=== PATIENT | female | born 1995 | race Caucasian/White ===

== ENCOUNTER 2018-11-11 11:15 | Observation (INO) | payer OTHER ==
[~2018-11-11] VITALS: Ht 157.5 cm; Wt 63.5 kg
--- NOTE | ~2018-11-11 | O ---
[facility] [place] [address] OPERATIVE REPORT Name: KEIRY HENDRICKS Room #: 364-P [facility] M.RMaddie#: [id number] Admission: 11/11/18 Attend Phys: Roque Mujica DDS Discharge: 11/12/18 Date of : [birth year] Report #: [id number] THIS REPORT FOR: //name// CC: Nataly Mujica DATE OF SERVICE: 11/11/2018 ROOM: Main OR room 1. SURGEON: Roque Mujica DDS SECOND SURGEON: Roe Sheppard. SCRUB NURSE: Ade Michael and Hellen Duran CIRCULATING NURSES: Lupe Hameed and Rebecca ____. 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 POSTOPERATIVE DIAGNOSIS: Mandibular hypoplasia and class 2 malocclusion. PROCEDURE: Bilateral mandibular sagittal split osteotomy. DESCRIPTION OF PROCEDURE: The patient was brought to main OR room #1 and underwent an uneventful nasotracheal intubation by the anesthesia team. The nasal tube was then secured by the oral surgery and anesthesia team in the usual fashion for nasal tube. The head of bed was turned 90 degrees. A timeout was performed. Local anesthetic of 0.25% Marcaine with epinephrine was administered intraorally and a throat pack was placed in the posterior oropharynx. The patient was then prepped and draped in the usual fashion for an intraoral surgical procedure. Attention was directed to the right mandibular posterior vestibule. An incision was made in the ascending tissue over the ramus anterior to approximately the first molar in the vestibule. A full mucoperiosteal flap was then reflected to expose the lateral mandible and the lingual as well as the ascending ramus. The inferior alveolar nerve was identified on the lingual of the mandible and protected. A Darius bur was utilized to make a horizontal incision on the lingual. A 701 and 702 burs were then utilized to make sagittal cuts and vertical cuts in the mandible for a sagittal split. A series of chisels and spreaders were then used to complete the osteotomy in the mandible. The fracture was uneventful. The inferior alveolar nerve was spared and noted to be intact and freed from the proximal segment to remain with the distal segment. The area was packed and then attention was directed to the left mandible. A standard incision for a sagittal osteotomy was made in the [address] [address] OPERATIVE REPORT Name: KEIYR HENDRICKS Room #: 364-P [facility] Nagi Zarate#: [id number] Admission: 11/11/18 Attend Phys: Roque Mujica DDS Discharge: 11/12/18 Date of : [birth year] Report #: [id number] vestibule and ascending ramus region. A full mucoperiosteal flap was then reflected lingually and buccally. The inferior alveolar nerve was noted on the lingual of the mandible and was protected. A Darius bur was then utilized to make a horizontal incision on the lingual of the mandible and then 701 and 702 burs were utilized to make a sagittal osteotomy in the mandible up to the proximal first molar. The vertical osteotomy was made with a 702 bur as well and then a series of spreaders and chisels were utilized to complete the osteotomy in the left mandible. The osteotomy was uneventful. The inferior alveolar nerve was protected and freed from the proximal segment and remained with the distal segment intact. The surgical splint was then wired into place with stainless steel wires. A notch was placed into the proximal buccal segment and the condyles were seated and then the osteotomy segments were reapproximated with three KLS Hammad positional screws on either side. Both segments were noted to be solid and immobilized. The surgical splint and wires were then removed. The occlusion was noted to be stable and repeatable. The incisions were then closed with 3-0 plain gut suture bilaterally. The throat pack was removed. The patient was then extubated and transferred to the recovery room in stable condition. ESTIMATED BLOOD LOSS: 100 mL. FLUIDS: 750 mL of crystalloid. SPECIMENS: None. COMPLICATIONS: No postop complications. The patient is going to be admitted to the floor for observation overnight and then will go home in the morning. <ELECTRONICALLY SIGNED> By: Roque Mujica DDS 11/13/18 1019 [id number] Roque Mujica DDS /nt
[2018-11-11 08:21] VITALS: BP 113/74
[2018-11-11 11:00] VITALS: BP 116/75
[~2018-11-11 11:15] MED LIST: BACTRIM DS TAB1 EACH PO; BENADRYL25 MG PO; ESTARYLLA1 EACH PO; EXCEDRIN CAPLE1 EACH PO; IBUPROFEN 200200 M1 PO; IBUPROFEN 600600 M1 PO; IBUPROFEN200 M1 PO; NORFLEX100 MG PO; REGLAN 10 MG TA10 MG PO; TRAMADOL 50 MG50 MG PO; ZANTAC 150MG T150 MG PO
[2018-11-11 16:04] VITALS: BP 107/70
[2018-11-11 19:20] VITALS: BP 114/67
[2018-11-12 00:03] VITALS: BP 105/70
[2018-11-12 03:36] VITALS: BP 108/45
[2018-11-12 07:53] VITALS: BP 97/59
[2018-11-12 09:38] VITALS: BP 97/59
== END 2018-11-12 10:03 | disposition home or self-care (01) ==
LOC: OR 11:15 → 3W 11:16 → OR 13:04 → ENTRNSPT 11-12 09:53 → EDTRNSPTSTS 11-12 09:56 → 3W 11-12 10:03
DX: M26.04 Mandibular hypoplasia (principal); M26.212 Malocclusion, Angle's class II; F41.9 Anxiety disorder, unspecified; J30.2 Other seasonal allergic rhinitis; Z68.27 Body mass index [BMI] 27.0-27.9, adult
CPT/HCPCS: 10779; 50010; 50101; 50386; 50398; 55106; 55430; 56526; 56805; 62110; 62900; 64034; 70005

== ENCOUNTER 2020-01-18 14:37 | Emergency (ER) | payer OTHER ==
[~2020-01-18] VITALS: Ht 157.5 cm; Wt 59.0 kg
[2020-01-18 15:01] LABS: ABSOLUTE NEUTROPHILS 6.5 thou/uL (1.4-8.2); BASOPHILS 0.7 % (0.0-2.0); EOSINOPHILS 0.9 % (0.0-3.0); HEMATOCRIT 33.2 % (37.0-47.0); HEMOGLOBIN 10.4 gm/dL (12.0-15.0); MCH 23.1 pg (26.0-34.0); MCHC 31.4 g/dL (28.0-37.0); MCV 73.8 fL (80.0-100.0); MONOCYTES 8.6 % (1.0-8.0); PLATELET COUNT 264 thou/uL (150-400); POLYS 67.8 % (36.0-66.0); RBC 4.51 mil/uL (4.20-5.00); RDW 15.5 % (10.5-14.5); WBC 9.6 thou/uL (4.0-11.0)
[2020-01-18 15:04] LABS: CALCIUM 9.5 mg/dL (8.5-10.1); CREATININE 0.8 mg/dL (0.6-1.0); POTASSIUM 3.5 mmol/L (3.5-5.1)
[2020-01-18 15:10] LABS: ALBUMIN 4.4 g/dL (3.4-5.0); TOTAL BILIRUBIN 0.8 mg/dL (<0.1-1.0); TOTAL PROTEIN 8.7 g/dL (6.4-8.2)
[2020-01-18 15:30] LABS: URINE BILIRUBIN NEGATIVE (Negative); URINE BLOOD NEGATIVE (Negative); URINE CLARITY CLEAR; URINE COLOR YELLOW; URINE GLUCOSE-RANDOM* NEGATIVE (Negative); URINE KETONES NEGATIVE (Negative); URINE LEUKOCYTES-REFLEX NEGATIVE (Negative); URINE NITRITE-REFLEX NEGATIVE (Negative); URINE PROTEIN (DIPSTICK) NEGATIVE (Negative); URINE UROBILINOGEN 0.2 E.U./dl (0.2-1.0)
[2020-01-18] MEDS ORDERED: SUPER THERAVIT1 EACH PO (15:34)
[2020-01-18] MEDS ORDERED: PROTONIX 20 MG20 MG PO (15:34)
[2020-01-18] MEDS ORDERED: PHENERGAN 25 MG25 M1 PO (16:29)
[2020-01-18] MEDS ORDERED: CARAFATE1 GM/10 ML PO (16:29)
[2020-01-18 17:45] VITALS: BP 105/62
== END 2020-01-18 17:45 | disposition home or self-care (01) ==
LOC: ER 14:37
PROVIDERS: Nurse Practitioner Family
DX: K29.70 Gastritis, unspecified, without bleeding (principal); G43.909 Migraine, unspecified, not intractable, without status migrainosus; K21.9 Gastro-esophageal reflux disease without esophagitis

== ENCOUNTER 2020-03-24 14:43 | Emergency (ER) | payer OTHER ==
[~2020-03-24] VITALS: Ht 154.9 cm; Wt 62.6 kg
[~2020-03-24 14:43] MED LIST changes: +CARAFATE1 GM/10 ML PO; +PHENERGAN 25 MG25 M1 PO; +PROTONIX 20 MG20 MG PO; +SUPER THERAVIT1 EACH PO
[2020-03-24] MEDS ORDERED: PROTONIX 20 MG20 MG PO (14:54)
[2020-03-24] MEDS ORDERED: PROAIR HFA8.5 GM INH (14:54)
[2020-03-24 16:07] LABS: ABSOLUTE NEUTROPHILS 5.1 thou/uL (1.4-8.2); BASOPHILS 0.4 % (0.0-2.0); EOSINOPHILS 1.3 % (0.0-3.0); HEMATOCRIT 32.8 % (37.0-47.0); HEMOGLOBIN 10.4 gm/dL (12.0-15.0); LYMPHOCYTES 29.8 % (24.0-44.0); MCH 23.4 pg (26.0-34.0); MCHC 31.7 g/dL (28.0-37.0); MCV 73.7 fL (80.0-100.0); MONOCYTES 6.4 % (1.0-8.0); PLATELET COUNT 268 thou/uL (150-400); POLYS 62.1 % (36.0-66.0); RBC 4.45 mil/uL (4.20-5.00); RDW 14.9 % (10.5-14.5); WBC 8.2 thou/uL (4.0-11.0)
[2020-03-24 16:17] LABS: TROPONIN-I <0.06 ng/mL (<0.06)
[2020-03-24 16:44] LABS: AMP/METHAMP Negative (Negative); BARBITURATES Negative (Negative); BENZODIAZEPINES Negative (Negative); COCAINE Negative (Negative); METHADONE Negative (Negative); OPIATES Negative (Negative); PCP Negative (Negative)
[2020-03-24 17:24] LABS: CALCIUM 9.3 mg/dL (8.5-10.1); CREATININE 0.8 mg/dL (0.6-1.0); POTASSIUM 3.9 mmol/L (3.5-5.1)
[2020-03-24 18:19] VITALS: BP 113/65
--- NOTE | 2020-03-26 11:45 | EKG ---
[facility] [place] [address] ELECTROCARDIOGRAM REPORT Name: KEIRY ANTONIO [id number] Admission: 03/24/20 Attend Phys: Discharge: 03/24/20 Date of : [birth year] Report #: [id number] THIS REPORT FOR: cc: Nataly Zhang Christine L. DO Couchonnal,Jaya Cheney MD ~ THIS REPORT FOR: //name// [facility] ED Test Date: 2020-03-24 Test Time: 14:51:58 Pat Name: KEIRY ANTONIO Department: Room: Gender: F Parks Worker: HEATHER : 1995 Requested By: Chuck Sibley Order Number: [id number] MD: Jaya Darling Measurements Intervals [place] Rate: 96 P: 63 IA: 119 QRS: 38 QRSD: 82 T: -1 QT: 330 QTc: 417 Interpretive Statements Sinus rhythm Ventricular premature complex Borderline short IA interval Probable left atrial enlargement RSR' in V1 or V2, right VCD or RVH Compared to ECG 04/04/2016 09:30:22 Ventricular premature complex(es) now present Right ventricular hypertrophy now present Electronically Signed On 03-26-2020 11:43:43 CDT by Jaya Darling [email or web address] <ELECTRONICALLY SIGNED> By: Jaya Darling MD 03/26/20 1143 1451 1451 Jaya Darling MD /EPI
== END 2020-03-24 18:29 | disposition home or self-care (01) ==
LOC: ER 14:43
PROVIDERS: Emergency Medicine
DX: R00.2 Palpitations (principal); R42 Dizziness and giddiness; R55 Syncope and collapse; R07.89 Other chest pain; J45.909 Unspecified asthma, uncomplicated; G43.909 Migraine, unspecified, not intractable, without status migrainosus; K21.9 Gastro-esophageal reflux disease without esophagitis; Z79.899 Other long term (current) drug therapy

== ENCOUNTER → 2020-06-22 | Outpatient (CLI) | payer OTHER ==
[~2020-06-22] MED LIST changes: +PROAIR HFA8.5 GM INH
== END ==
LOC: LAB 10:35
PROVIDERS: ATTEND Nurse Practitioner
DX: Z20.828 Contact with and (suspected) exposure to other viral communicable diseases (principal); R50.9 Fever, unspecified; R06.02 Shortness of breath

== ENCOUNTER → 2020-07-01 | Outpatient (CLI) | payer OTHER ==
--- NOTE | 2020-07-16 17:36 | PFR/MVV ---
[facility] [place] [address] PULMONARY FUNCTION MVV/REPORT Name: KEIRY ANTONIO Room #: REG [facility].#: [id number] Admission: 07/01/20 Attend Phys: ANNIE Franco Discharge: Date of : [birth year] Report #: [id number] THIS REPORT FOR: //name// COPIES FOR: AGE: 25 SEX/RACE: F/C >> SPIROMETRY: (BTPS) Height: 62 in cm Weight: 140 lbs kg Exam Date: 07/01/20 PRE-RX POST-RX PRED BEST %PRED BEST %PRED %CHG FVC LITERS . 3.73 . 3.42 . 92 . 3.42 . 92 . -0 FEV1 LITERS . 3.01 . 2.82 . 94 . 2.84 . 94 . 1 FEV1/FVC % . 80 . 82 . 103 . 83 . 103 . 1 NRA32-59% L/Sec . 3.58 . 3.00 . 84 . 3.21 . 90 . 7 PEF L/SEC . 6.40 . 5.68 . 89 . 5.71 . 89 . 0 FEF50/FIF50 UNITLESS . <1.00 . 2.43 . . 1.59 . . -35 MVV L/Min . 120 . 33 . 27 f 1/Min . . 130 . >> LUNG VOLUMES: (BTPS) PRE-RX POST-RX PRED AVG %PRED AVG %PRED %CHG VC Liters . 3.73 . 3.88 . 104 . . . TLC Liters . 4.79 . 4.66 . 97 . . . RV Liters . 1.35 . 0.78 . 58 . . . RV/TLC % . 28 . 17 . 60 . . . [address] Liters . 2.55 . 1.89 . 74 . . . FRC N2 Liters . 2.55 . . . . . ERV Liters . 1.20 . 1.11 . 93 . . . IC Liters . 2.39 . 2.16 . 90 . . . >> DIFFUSION: DLCO ml/Min/mmHg . 23.2 . 16.0 . 69 . . . DL Aruna ml/Min/mmHg . 23.2 . 16.0 . 69 . . . DLCO/VA ml/Min/mmHg . 4.64 . 5.03 . 108 . . . VA Liters . . 3.18 . . . . [facility] [address] [place] [address] PULMONARY FUNCTION MVV/REPORT Name: KEIRY ANTONIO [facility] Room #: REG Araceli Zarate#: [id number] Admission: 07/01/20 Attend Phys: ANNIE Franco Discharge: Date of : 89 Report #: [id number] COMMENTS: COMMENTS: >> RESISTANCE: PRE-RX PRED AVG %PRED Raw Total cmH20/L/Sec . . 2.14 . Raw Insp cmH20/L/Sec . . 2.34 . Raw Exp cmH20/L/Sec . . 3.70 . Raw cmH20/L/Sec . 1.51 . 2.57 . 170 Gaw L/Sec/cmH20 . 0.612 . 0.389 . 64 sRaw cmH20 Sec . 3.86 . 5.15 . 133 sGaw l/cmH20 Sec . 0.259 . 0.194 . 75 Vtq Liters . . 2.00 . # = OUTSIDE 95% CONFIDENCE INTERVAL CALIBRATION: PRED: 3.00 ACTUAL: EXP 3.[address] [facility]10[facility]06 [facility] N-1804-4 >> INTERPRETATION/IMPRESSION: CC: Familia Zhang DATE OF SERVICE: 07/01/2020 SPIROMETRY: FEV1 is 2.82 liters (94%), FVC is 3.42 liters (92%), FEV1/FVC ratio is 82%. There is no significant response to bronchodilator therapy. LUNG VOLUMES: TLC is 4.66 liters (97%). Diffusing capacity is 69%. IMPRESSION: Pulmonary function studies are suggestive of normal pulmonary function. There is no significant response to bronchodilator therapy. <ELECTRONICALLY SIGNED> By: Leopoldo Rosas MD 07/16/20 1736 Leopoldo Rosas MD /nt
== END ==
LOC: PUL 10:50
PROVIDERS: ATTEND Nurse Practitioner
DX: J45.990 Exercise induced bronchospasm (principal)

== ENCOUNTER → 2020-07-05 | Outpatient (CLI) | payer OTHER ==
[2020-07-05 11:39] LABS: ABSOLUTE NEUTROPHILS 3.9 thou/uL (1.4-8.2); BASOPHILS 0.3 % (0.0-2.0); EOSINOPHILS 1.8 % (0.0-3.0); HEMATOCRIT 29.2 % (37.0-47.0); HEMOGLOBIN 9.3 gm/dL (12.0-15.0); LYMPHOCYTES 30.2 % (24.0-44.0); MCH 22.3 pg (26.0-34.0); MCHC 31.7 g/dL (28.0-37.0); MCV 70.2 fL (80.0-100.0); MONOCYTES 5.6 % (1.0-8.0); PLATELET COUNT 290 thou/uL (150-400); POLYS 62.1 % (36.0-66.0); RBC 4.16 mil/uL (4.20-5.00); RDW 15.2 % (10.5-14.5); WBC 6.3 thou/uL (4.0-11.0)
[2020-07-05 12:00] LABS: % SATURATION 6 % (20-39); IRON 33 ug/dL (50-170); TIBC 583 ug/dL (250-450)
[2020-07-05 12:02] LABS: ALBUMIN 3.7 g/dL (3.4-5.0); CALCIUM 9.1 mg/dL (8.5-10.1); CREATININE 0.8 mg/dL (0.6-1.0); TOTAL BILIRUBIN 0.8 mg/dL (0.2-1.0); TOTAL PROTEIN 7.4 g/dL (6.4-8.2)
== END ==
LOC: LAB 10:06
PROVIDERS: ATTEND Nurse Practitioner
DX: R50.9 Fever, unspecified (principal); N92.0 Excessive and frequent menstruation with regular cycle; R53.83 Other fatigue; I10 Essential (primary) hypertension

== ENCOUNTER → 2020-07-29 | Outpatient (CLI) | payer OTHER ==
[~2020-07-29] MED LIST changes: +LEXAPRO20 MG PO; +PROTONIX40 M1 PO
[2020-07-29 09:50] VITALS: BP 118/72
[2020-07-29 10:26] VITALS: BP 118/72
[2020-07-29 10:50] VITALS: BP 101/47
[2020-07-29 11:20] VITALS: BP 117/57
--- NOTE | 2020-07-29 11:30 | NUR ---
HERE FOR 1ST OF 2 INJECTAFER INFUSIONS FOR IRON DEFICIENCY ANEMIA. PT BEING WORKED UP FOR POSSIBLE UPPER GI BLEED. STATES HAS HAD GASTRIC DISTRESS NOW FOR A COUPLE YEARS AND HAS BEEN FEELING TIRED AND SYMPTOMATIC FROM ANEMIA FOR NEARLY LONG. TEACHING COMPLETED. INJECTAFER GIVEN OVER 30 MIN, PT WATCHED 30 MIN POST. VSS. NO CONCERNS NOTED. DISMISSED IN STABLE CONDITION. SCHEDULED TO RETURN IN ONE WEEK.
== END ==
LOC: OPONC 09:24
PROVIDERS: ATTEND Nurse Practitioner
DX: D50.9 Iron deficiency anemia, unspecified (principal); N92.0 Excessive and frequent menstruation with regular cycle
CPT/HCPCS: 95000

== ENCOUNTER → 2020-08-05 | Outpatient (CLI) | payer OTHER ==
[2020-08-05 10:00] VITALS: BP 114/63
[2020-08-05 11:10] VITALS: BP 119/73
--- NOTE | 2020-08-05 13:53 | NUR ---
IN FOR 2ND INJECTAFER INFUSION FOR IRON DEF. ANEMIA. STATED HAD NO SIDE EFFECTS AFTER 1ST INFUSION LAST WEEK. IV PLACED IN RIGHT HAND AND INFUSED INJECTAFER OVER 30 MINUTES. TOLERATED WELL. OBSERVED FOR 30 MINUTES. POST BP GOOD. REMOVED IV AND DISMISSED IN GOOD CONDITION.
== END ==
LOC: OPONC 08:25
PROVIDERS: ATTEND Nurse Practitioner
DX: D50.9 Iron deficiency anemia, unspecified (principal); N92.0 Excessive and frequent menstruation with regular cycle
CPT/HCPCS: 95000

== ENCOUNTER → 2020-08-24 | Outpatient (CLI) | payer OTHER ==
[~2020-08-24] MED LIST changes: +ACIDOPHILUS1 EAC3 PO
== END ==
LOC: LAB 14:23
PROVIDERS: ATTEND Internal Medicine Gastroenterology
DX: Z01.812 Encounter for preprocedural laboratory examination (principal); Z20.828 Contact with and (suspected) exposure to other viral communicable diseases

== ENCOUNTER → 2020-08-29 | Outpatient (CLI) | payer OTHER ==
[~2020-08-29] VITALS: Ht 154.9 cm; Wt 63.5 kg
== END | disposition home or self-care (01) ==
LOC: GI 07:03
PROVIDERS: ATTEND Internal Medicine Gastroenterology
DX: D50.9 Iron deficiency anemia, unspecified (principal); R12 Heartburn; K21.9 Gastro-esophageal reflux disease without esophagitis; J45.909 Unspecified asthma, uncomplicated; F32.9 Major depressive disorder, single episode, unspecified; Z98.890 Other specified postprocedural states; Z79.899 Other long term (current) drug therapy
CPT/HCPCS: 62110; 62900

== ENCOUNTER → 2020-10-04 | Outpatient (CLI) | payer OTHER ==
[2020-10-04 12:19] LABS: ABSOLUTE NEUTROPHILS 3.8 thou/uL (1.4-8.2); BASOPHILS 0.4 % (0.0-2.0); EOSINOPHILS 1.6 % (0.0-3.0); HEMATOCRIT 37.6 % (37.0-47.0); HEMOGLOBIN 12.6 gm/dL (12.0-15.0); LYMPHOCYTES 36.5 % (24.0-44.0); MCH 28.5 pg (26.0-34.0); MCHC 33.4 g/dL (28.0-37.0); MCV 85.3 fL (80.0-100.0); MONOCYTES 5.9 % (1.0-8.0); PLATELET COUNT 222 thou/uL (150-400); POLYS 55.6 % (36.0-66.0); RBC 4.41 mil/uL (4.20-5.00); RDW 22.5 % (10.5-14.5); WBC 6.9 thou/uL (4.0-11.0)
[2020-10-04 12:31] LABS: % SATURATION 47 % (20-39); IRON 151 ug/dL (50-170); TIBC 324 ug/dL (250-450)
[2020-10-04 12:40] LABS: ANISOCYTOSIS 1+; PLATELET ESTIMATE NORMAL
== END ==
LOC: LABMALL 11:42
PROVIDERS: ATTEND Nurse Practitioner
DX: D50.9 Iron deficiency anemia, unspecified (principal)

== ENCOUNTER → 2020-11-23 | Outpatient (CLI) | payer OTHER | LOC: LAB 14:18 | PROVIDERS: ATTEND Nurse Practitioner | DX: U07.1 COVID-19 (principal); J02.9 Acute pharyngitis, unspecified; R06.02 Shortness of breath; R53.83 Other fatigue ==

== ENCOUNTER → 2020-12-06 | Outpatient (CLI) | payer OTHER | LOC: LAB 09:59 | PROVIDERS: ATTEND Nurse Practitioner | DX: J02.9 Acute pharyngitis, unspecified (principal); R09.81 Nasal congestion ==

== ENCOUNTER → 2021-01-19 | Outpatient (CLI) | payer OTHER ==
[2021-01-19 12:28] LABS: ABSOLUTE NEUTROPHILS 4.1 thou/uL (1.4-8.2); BASOPHILS 0.3 % (0.0-2.0); EOSINOPHILS 2.1 % (0.0-3.0); HEMATOCRIT 40.4 % (37.0-47.0); HEMOGLOBIN 13.2 gm/dL (12.0-15.0); LYMPHOCYTES 39.4 % (24.0-44.0); MCH 29.5 pg (26.0-34.0); MCHC 32.8 g/dL (28.0-37.0); MCV 90.2 fL (80.0-100.0); MONOCYTES 5.7 % (1.0-8.0); PLATELET COUNT 247 thou/uL (150-400); POLYS 52.5 % (36.0-66.0); RBC 4.48 mil/uL (4.20-5.00); RDW 12.6 % (10.5-14.5); WBC 7.8 thou/uL (4.0-11.0)
[2021-01-19 12:33] LABS: % SATURATION 33 % (20-39); IRON 100 ug/dL (50-170); TIBC 301 ug/dL (250-450)
== END ==
LOC: LAB 11:51
PROVIDERS: ATTEND Nurse Practitioner
DX: D50.9 Iron deficiency anemia, unspecified (principal)

== ENCOUNTER → 2021-01-25 | Outpatient (CLI) | payer OTHER | LOC: LAB 13:18 | PROVIDERS: ATTEND Nurse Practitioner | DX: Z32.00 Encounter for pregnancy test, result unknown (principal); R63.5 Abnormal weight gain; E55.9 Vitamin D deficiency, unspecified ==

== ENCOUNTER → 2021-02-17 | Outpatient (CLI) | payer OTHER | LOC: ULTRA 08:59 | PROVIDERS: ATTEND Nurse Practitioner | DX: R63.5 Abnormal weight gain (principal) ==

== ENCOUNTER → 2021-08-10 | Outpatient (CLI) | payer OTHER ==
[2021-08-10 13:23] LABS: ABSOLUTE NEUTROPHILS 6.4 thou/uL (1.4-8.2); BASOPHILS 0.7 % (0.0-2.0); EOSINOPHILS 1.4 % (0.0-3.0); HEMATOCRIT 38.9 % (37.0-47.0); HEMOGLOBIN 13.1 gm/dL (12.0-15.0); LYMPHOCYTES 27.2 % (24.0-44.0); MCH 29.8 pg (26.0-34.0); MCHC 33.8 g/dL (28.0-37.0); MCV 88.2 fL (80.0-100.0); MONOCYTES 5.9 % (1.0-8.0); PLATELET COUNT 250 thou/uL (150-400); POLYS 64.8 % (36.0-66.0); RBC 4.42 mil/uL (4.20-5.00); RDW 12.4 % (10.5-14.5); WBC 9.9 thou/uL (4.0-11.0)
[2021-08-10 13:37] LABS: CALCIUM 8.8 mg/dL (8.5-10.1); CREATININE 0.8 mg/dL (0.6-1.0); TOTAL BILIRUBIN 0.5 mg/dL (0.2-1.0); TOTAL PROTEIN 7.9 g/dL (6.4-8.2)
== END ==
LOC: LAB 12:36
PROVIDERS: ATTEND Nurse Practitioner
DX: R53.83 Other fatigue (principal)

== ENCOUNTER → 2021-09-18 | Outpatient (CLI) | payer OTHER ==
[2021-09-19 00:06] LABS: GLYCOHEMOGLOBIN (HGB A1C) 5.4 % (4.8-5.6)
== END ==
LOC: ULTRA 12:00
PROVIDERS: ATTEND Internal Medicine Endocrinology, Diabetes & Metabolism
DX: E03.9 Hypothyroidism, unspecified (principal); R73.9 Hyperglycemia, unspecified; E55.9 Vitamin D deficiency, unspecified

== ENCOUNTER → 2021-11-02 | Outpatient (CLI) | payer OTHER | LOC: LAB 07:54 | PROVIDERS: ATTEND Internal Medicine Endocrinology, Diabetes & Metabolism | DX: E03.9 Hypothyroidism, unspecified (principal) ==

== ENCOUNTER → 2022-01-15 | Outpatient (CLI) | payer OTHER ==
[2022-01-15 13:12] LABS: ABSOLUTE NEUTROPHILS 4.6 thou/uL (1.4-8.2); BASOPHILS 0.6 % (0.0-2.0); HEMATOCRIT 38.4 % (37.0-47.0); LYMPHOCYTES 34.2 % (24.0-44.0); MCH 29.1 pg (26.0-34.0); MCHC 33.8 g/dL (28.0-37.0); MCV 85.9 fL (80.0-100.0); MONOCYTES 6.9 % (1.0-8.0); PLATELET COUNT 235 thou/uL (150-400); POLYS 57.3 % (36.0-66.0); RBC 4.47 mil/uL (4.20-5.00); RDW 12.7 % (10.5-14.5)
[2022-01-15 13:28] LABS: % SATURATION 28 % (20-39); ALBUMIN 3.8 g/dL (3.4-5.0); CALCIUM 9.2 mg/dL (8.5-10.1); CREATININE 0.7 mg/dL (0.6-1.0); IRON 96 ug/dL (50-170); POTASSIUM 3.4 mmol/L (3.5-5.1); TIBC 347 ug/dL (250-450); TOTAL BILIRUBIN 0.7 mg/dL (0.2-1.0); TOTAL PROTEIN 7.5 g/dL (6.4-8.2)
== END ==
LOC: LAB 11:58
PROVIDERS: ATTEND Nurse Practitioner
DX: R53.82 Chronic fatigue, unspecified (principal)